=== PATIENT | female | born 1985 | race Caucasian/White ===

== ENCOUNTER 2023-10-28 21:47 | Emergency (ER) | payer MEDICAID, OTHER ==
[~2023-10-28] VITALS: Ht 165.1 cm; Wt 81.8 kg
[2023-10-28 00:30] VITALS: PULSE 94; RESP 18; O2SAT 97
[2023-10-28 22:18] VITALS: TEMP 98.4
[2023-10-28] MEDS ORDERED: 0.9% SODIUM CHLORIDE 5 ML NEB SOLUTION NEB ONE (22:56)
[2023-10-28] MEDS ORDERED: IPRATROPIUM BROMIDE 0.5 MG/2.5 ML NEB SOLUTION NEB ONE (22:56)
[2023-10-28] MEDS ORDERED: ALBUTEROL SULFATE 2.5 MG/0.5 ML 5 ML NEB SOLUTION NEB ONE (22:56)
[2023-10-28 23:25] LABS: BASOPHILS % (AUTO) 0.8 % (0.0-2.0); EOSINOPHILS % (AUTO) 8.4 % (1.0-6.0); HEMATOCRIT 37.3 % (36-46); HEMOGLOBIN 12.4 g/dL (12.0-16.0); LYMPHOCYTES # (AUTO) 4.1 K/uL (1.0-4.8); LYMPHOCYTES % (AUTO) 32.5 % (22.0-44.0); MEAN CORPUSCULAR HEMOGLOBIN 28.5 pg (26.0-34.0); MEAN CORPUSCULAR HGB CONC 33.2 G/dL (31.0-37.0); MEAN CORPUSCULAR VOLUME 86 fL (80-100); MONOCYTES # (AUTO) 0.7 K/uL (0.1-1.0); MONOCYTES % (AUTO) 5.7 % (2.0-9.0); NEUTROPHILS # (AUTO) 6.7 K/uL (1.8-7.7); NEUTROPHILS % (AUTO) 52.6 % (40.0-70.0); PLATELET COUNT (AUTO) 296 K/uL (150-450); RED BLOOD CELL COUNT(AUTO) 4.34 MIL/uL (4.00-5.20); RED CELL DISTRIBUTION WIDTH 13.2 % (11.5-14.5); WHITE BLOOD COUNT (AUTO) 12.7 K/uL (4.5-11.0)
[2023-10-28 23:34] LABS: ANION GAP 8 mmol/L (8-16); CALCIUM, TOTAL 8.9 mg/dL (8.8-10.5); CARBON DIOXIDE 29 mmol/L (22-29); CHLORIDE 102 mmol/L (98-107); CREATININE 0.71 mg/dL (0.60-1.30); GLOMERULAR FILTR. RATE CALC > 60 mL/min (>60); GLUCOSE,RANDOM 122 mg/dL (70-110); POTASSIUM 3.5 mmol/L (3.5-5.1); SODIUM SERUM 139 mmol/L (136-145); UREA NITROGEN, BLOOD 14 mg/dL (7-18)
[2023-10-28 23:35] VITALS: PULSE 80; RESP 32; O2SAT 94
[2023-10-28 23:40] LABS: ALANINE AMINOTRANSFERASE 25 U/L (12-78); ALBUMIN 3.6 g/dL (3.4-5.0); ALKALINE PHOSPHATASE 85 U/L (46-116); ASPARTATE AMINOTRANSFERASE 20 U/L (15-37); BILIRUBIN,TOTAL 0.2 mg/dL (0.1-1.0); TOTAL PROTEIN, SERUM 7.6 g/dL (6.4-8.2)
[2023-10-28] MEDS: IPRATROPIUM BROMIDE 0.5 MG/2.5 ML NEB SOLUTION NEB ONE (23:41)
[2023-10-28] MEDS: MethylPREDNISolone SOD SUCC 125 MG/2 ML VIAL IM ONE (23:41)
[2023-10-28 23:42] LABS: TROPONIN I-HIGH SENSITIVITY 4 ng/L (<51)
[2023-10-28] MEDS: ALBUTEROL SULFATE 2.5 MG/0.5 ML NEB SOLUTION NEB ONE (23:43)
[2023-10-28 23:45] VITALS: PULSE 80; RESP 32; O2SAT 94
[2023-10-29 00:05] VITALS: PULSE 89; RESP 28; O2SAT 100
[2023-10-29 00:25] LABS: INFLUENZA A-RTPCR,COMBO NEGATIVE (NEGATIVE); INFLUENZA B-RTPCR,COMBO NEGATIVE (NEGATIVE); RESPIRATORY SYNCYTIAL VRS-PCR NEGATIVE (NEGATIVE); SARS COVID19 RTPCR, COMBO NEGATIVE (NEGATIVE)
[2023-10-29] MEDS: EPINEPHrine 1:1,000 [1 MG/ML] VIAL SQ ONE (00:28)
[2023-10-29] MEDS: IPRATROPIUM BROMIDE 0.5 MG/2.5 ML NEB SOLUTION NEB ONE (00:28)
[2023-10-29] MEDS: ALBUTEROL SULFATE 2.5 MG/0.5 ML 5 ML NEB SOLUTION NEB ONE (00:28)
[2023-10-29 01:24] VITALS: PULSE 101; RESP 16; O2SAT 100
[2023-10-29 02:39] VITALS: BP 99/79; PULSE 99; RESP 20
[2023-10-29] MEDS ORDERED: ALBU18HF12 IH (02:52)
[2023-10-29] MEDS ORDERED: METH4TAB3 PO (02:52)
[2023-10-29] MEDS ORDERED: GUAIFDM PO (02:52)
== END 2023-10-29 03:03 | disposition home or self-care (01) ==
LOC: EMS 21:47
DX: J06.9 Acute upper respiratory infection, unspecified (principal); R07.89 Other chest pain; J45.901 Unspecified asthma with (acute) exacerbation; Z20.822 Contact with and (suspected) exposure to COVID-19
CPT/HCPCS: 80053; 84484; 84703; 85025; 36415; 94640; 71045; 99285; 93005; 96372 ×2; 0241U; J2930; Q9967 ×2; J0171; 94644; J7613